=== PATIENT | male | born 1955 | race Hispanic/Latino ===

== ENCOUNTER 2016-03-17 19:03 | Emergency (ER) | payer BC ==
[2016-03-17] MEDS ORDERED: KETOROLAC TROMETHAMINE INJ 30 MG/ML VIAL IM ONE (19:36)
[2016-03-17] MEDS ORDERED: predniSONE 20 MG TAB PO ONE (19:36)
[2016-03-17] MEDS ORDERED: COLCHICINE 0.6 MG TAB PO ONE ×2 (19:37→20:47)
--- NOTE | 2016-03-17 19:58 | RAD ---
EXAM DESCRIPTION: XR ANKLE 3 OR MORE VIEWS CLINICAL HISTORY: Lateral ankle and heel pain 1 day, no trauma, mild COMPARISON: None. FINDINGS: AP,lateral and oblique views of the right ankle were submitted. There is soft tissue swelling. There is no discrete acute fracture or dislocation. The ankle mortise is intact in these non stress views. There is no radiopaque foreign body material. IMPRESSION: No acute fracture or dislocation. Soft tissue swelling. Electronically signed by: Guille Guthrie 03/17/2016 19:55
[2016-03-17] MEDS ORDERED: COLCHICINE 0.6 MG TAB ONE (20:48)
--- NOTE | 2016-03-17 20:50 | ED.PDOC ---
History of Present Illness - General Chief Complaint: Lower Extremity Injury Stated Complaint: right ankle pain Time Seen by Provider: 03/17/16 19:35 Source: patient Exam Limitations: no limitations - History of Present Illness Initial Comments: the patient is a 60-year-old male presenting to the ER secondary to right posterior lateral foot and ankle pain present for the last 24 hours and getting worse. Pain is with passive and active range of motion. He has not sustained any trauma to it that he knows of. Pain is also worse with palpation. There is mild diffuse erythema. There is mild diffuse swelling. It is exquisitely tender to palpation. He has not previously had any history of gout but he does drink significant amount of alcohol. No new medication changes. He does state he has not been drinking enough fluids otherwise. No fevers. No breaks in the skin. No extending erythema. No evidence of abscess formation. He is neurovascularly preserved distally. Occurred: yesterday Pain - Lower Extremity: severe: Left Foot, Right Foot Method of Injury: unknown Improving Factors: immobilization Worsening Factors: movement Allergies/Adverse Reactions: Allergies NO KNOWN ALLERGY Allergy (Unverified 09/19/13 19:53) Home Medications: Ambulatory Orders Chlorhexidine Mouth Rinse [Peridex] 15 ml MT BID #1 bttl 05/02/14 Naproxen [Naprosyn] 500 mg PO BID PRN #10 tab 05/02/14 Penicillin V Potassium 500 mg PO QID #40 tab 05/02/14 Colchicine 0.6 mg PO Q6H PRN #4 tab 03/17/16 Review of Systems - Review of Systems Constitutional: States: no symptoms reported EENTM: States: no symptoms reported Respiratory: States: no symptoms reported Cardiology: States: no symptoms reported Gastrointestinal/Abdominal: States: no symptoms reported Genitourinary: States: no symptoms reported Musculoskeletal: States: see HPI Skin: States: see HPI Neurological: States: no symptoms reported All other Systems: No Change from Baseline Past Medical History (General) - Patient Medical History Hx Seizures: No Hx Stroke: No Hx Dementia: No Hx Asthma: No Hx of COPD: No Hx Cardiac Disorders: No Hx Congestive Heart Failure: No Hx Pacemaker: No Hx Hypertension: No Hx Thyroid Disease: No Hx Diabetes: No Hx Gastroesophageal Reflux: No Hx Renal Disease: No Hx Cancer: No Hx of HIV: No Hx Hepatitis C: No Hx MRSA: No - Vaccination History Hx Tetanus, Diphtheria Vaccination: No Hx Influenza Vaccination: No Hx Pneumococcal Vaccination: No Immunizations Up to Date: Yes - Social History Hx Tobacco Use: Yes Hx Alcohol Use: Yes Hx Substance Use: No Hx Substance Use Treatment: No Hx Depression: No Hx Physical Abuse: No Hx Emotional Abuse: No Hx Suspected Abuse: No Family Medical History - Family History Mother Family History: No Known Physical Exam - Physical Exam General Appearance: Alert, Comfortable, No apparent distress Eyes, Ears, Nose, Throat: PERRL/EOMI Neck: full range of motion, supple, normal inspection Cardiovascular/Respiratory: normal peripheral pulses, normal breath sounds, no respiratory distress Gastrointestinal/Abdominal: non-tender Thigh/Hip: normal inspection, non-tender, no evidence of injury, normal ROM Leg: normal inspection, non-tender, no evidence of injury, normal ROM Knee: normal inspection, non-tender, no evidence of injury, normal ROM Ankle: other - see history of present illness Foot: other - see history of present illness. There is no bruising or deformity. Neuro/Tendon: normal sensation, normal motor functions, normal tendon functions , responds to pain Mental Status: alert, oriented x 3 Skin: normal color - with the exception of mild erythema as described above Comments: Vital Signs - 24 hr 03/17/16 19:20 Temperature 100.8 F H Pulse Rate [ 89 right arm] Respiratory 20 Rate Blood Pressure 145/92 [Right Arm] O2 Sat by Pulse 99 Oximetry Progress - Progress Progress: 03/17/16 20:54 the patient is a 60-year-old male presenting with pain to the right lateral posterior foot. It is been present for only approximately 1 day. There has been no traumatic inciting event. X-rays of the ankle are reassuring. Due to clinical presentation most likely etiology is gout. He has responded very nicely to colchicine, Toradol and prednisone. He will be given tablets of colchicine to take over the next few days. Additionally he increase his fluid intake and decrease his alcohol intake. He needs to keep the area warm crystal formation. If the problem appears to be worsening rather than improving and he may need additional workup. Certainly early infectious cellulitis can look similar, however clinical presentation at this time is more consistent with gout. he does need follow-up with his primary care doctor early next week. ER warnings were given for any significant worsening. If he worsens rather than improves, then blood work including culture, uric acid, ESR, CBC and CMP are recommended along with possible CT imaging of the area. Departure - Departure Clinical Impression: Gout attack Qualifiers: Gout site: ankle Gout etiology: unspecified cause Laterality: right Qualifier Code: (M10.9) Gout, unspecified Disposition: Discharge to Home or Self Care Condition: Fair Departure Forms: ED Discharge - Pt. Copy, Patient Portal Self Enrollment Instructions: DI for Gout Diet: regular diet Activity: increase activity as tolerated Referrals: Stefano Webb III, MD [Primary Care Provider] - 1-5 Days Prescriptions: Colchicine 0.6 mg PO Q6H PRN #4 tab PRN Reason: Pain -- Moderate Home Medications: Ambulatory Orders Chlorhexidine Mouth Rinse [Peridex] 15 ml MT BID #1 bttl 05/02/14 Naproxen [Naprosyn] 500 mg PO BID PRN #10 tab 05/02/14 Penicillin V Potassium 500 mg PO QID #40 tab 05/02/14 Colchicine 0.6 mg PO Q6H PRN #4 tab 03/17/16 Additional Instructions: the patient is a 60-year-old male presenting with pain to the right lateral posterior foot. It is been present for only approximately 1 day. There has been no traumatic inciting event. X-rays of the ankle are reassuring. Due to clinical presentation most likely etiology is gout. He has responded very nicely to colchicine, Toradol and prednisone. He will be given tablets of colchicine to take over the next few days. Additionally he increase his fluid intake and decrease his alcohol intake. He needs to keep the area warm crystal formation. If the problem appears to be worsening rather than improving and he may need additional workup. Certainly early infectious cellulitis can look similar, however clinical presentation at this time is more consistent with gout. he does need follow-up with his primary care doctor early next week. ER warnings were given for any significant worsening. If he worsens rather than improves, then blood work including blood culture, uric acid, ESR, CBC and CMP are recommended along with possible CT imaging of the area.
[2016-03-17 21:17] VITALS: BP 137/88; TEMP 99.9
[2016-03-17 21:18] VITALS: O2SAT 100
== END 2016-03-17 21:19 | disposition home or self-care (01) ==
LOC: ER 19:03
DX: M10.9 Gout, unspecified (principal); Z87.891 Personal history of nicotine dependence

== ENCOUNTER → 2016-06-07 | Outpatient (CLI) | payer BC | END | disposition home or self-care (01) | LOC: GMAL 10:33 | PROVIDERS: ATTEND Family Medicine | DX: D51.3 Other dietary vitamin B12 deficiency anemia (principal); Z12.5 Encounter for screening for malignant neoplasm of prostate; M25.50 Pain in unspecified joint; E55.9 Vitamin D deficiency, unspecified ==

== ENCOUNTER → 2016-10-03 | Outpatient (CLI) | payer BC | END | disposition home or self-care (01) | LOC: GMAL 10:26 | PROVIDERS: ATTEND Family Medicine | DX: E55.9 Vitamin D deficiency, unspecified (principal) ==

== ENCOUNTER → 2017-04-05 | Outpatient (CLI) | payer BC | LOC: GMAL 10:49 | PROVIDERS: ATTEND Family Medicine | DX: Z00.00 Encounter for general adult medical examination without abnormal findings (principal) ==

== ENCOUNTER → 2018-08-19 | Outpatient (CLI) | payer SELFPAY | LOC: GMAL 10:45 | PROVIDERS: ATTEND Family Medicine | DX: Z00.01 Encounter for general adult medical examination with abnormal findings (principal) ==

== ENCOUNTER 2019-05-25 | Emergency (ER) | payer BC | END 2019-05-25 21:42 | disposition home or self-care (01) | DX: H91.93 Unspecified hearing loss, bilateral (principal); H66.90 Otitis media, unspecified, unspecified ear; H60.90 Unspecified otitis externa, unspecified ear; H61.23 Impacted cerumen, bilateral; I10 Essential (primary) hypertension; Z87.891 Personal history of nicotine dependence ==

== ENCOUNTER 2019-10-07 22:41 | Emergency (ER) | payer BC ==
--- NOTE | 2019-10-07 23:06 | ED.PDOC ---
History of Present Illness - General Chief Complaint: Abdominal Pain Stated Complaint: low abd pain, nausea Time Seen by Provider: 10/07/19 22:58 Information Source: patient, family - History of Present Illness Initial Comments: 64 yo M comes in with the c/c of left inguinal pain x 1 day. States he has had hernia on and off for the past two years, but over the past day has developed a hard mass. Now hurting so bad that he has been vomiting. No black or bloody bm. NO fever. Patient also has HTN but does not take his medication. NO prior abdominal surgeries. no chest pain or shortness of breath. Review of Systems - Review of Systems Constitutional: Denies: chills, diaphoresis, fever, malaise EENTM: Denies: eye pain, double vision Respiratory: Denies: cough, orthopnea, short of breath Cardiology: Denies: chest pain, edema, palpitations Gastrointestinal/Abdominal: States: abdominal pain, nausea, vomiting. Denies: constipation, diarrhea Genitourinary: Denies: dysuria, frequency, hematuria Musculoskeletal: Denies: back pain, joint swelling, muscle pain Skin: Denies: change in color, change in hair/nails, dryness Neurological: Denies: headache, numbness, paresthesia Hematologic/Lymphatic: Denies: anemia, blood clots, easy bleeding, easy bruising All other Systems: Reviewed and Negative Past Medical History (General) - Patient Medical History Hx Seizures: No Hx Stroke: No Hx Dementia: No Hx Asthma: No Hx of COPD: No Hx Cardiac Disorders: No Hx Congestive Heart Failure: No Hx Pacemaker: No Hx Hypertension: Yes Hx Thyroid Disease: No Hx Diabetes: No Hx Gastroesophageal Reflux: No Hx Renal Disease: No Hx Cancer: No Hx of HIV: No Hx Hepatitis C: No Hx MRSA: No Surgical History: other - Vaccination History Hx Tetanus, Diphtheria Vaccination: No Hx Influenza Vaccination: No Hx Pneumococcal Vaccination: No - Social History Hx Tobacco Use: Yes Hx Alcohol Use: Yes Hx Substance Use: No Hx Substance Use Treatment: No Hx Depression: No Hx Physical Abuse: No Hx Emotional Abuse: No Hx Suspected Abuse: No Family Medical History - Family History Mother Family History: No Known Physical Exam - Physical Exam General Appearance: Alert, Comfortable, No apparent distress Eyes, Ears, Nose, Throat Exam: PERRL/EOMI, normal ENT inspection Neck: non-tender, full range of motion, supple, normal inspection Respiratory: chest non-tender, lungs clear, normal breath sounds, no respiratory distress, no accessory muscle use Cardiovascular/Chest: normal peripheral pulses, regular rate, rhythm, no edema, no gallop, no JVD, no murmur Peripheral Pulses: 2+ Gastrointestinal/Abdominal: normal bowel sounds, soft, no pulsatile mass, other - left inguinal hernria, not reducible. 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 Attempted reduction without success. attempted partial inguinal block. CT abd/pelvis, CBC, CMP, Lipase. 1 L NS bolus. 4 mg morphine, 4 mg zofran. 10/08/19 00:11 Surgery at bedside. Successful reduction. Instruction to follow up in surgery office in AM to schedule hernia repair surgery. The data reviewed when caring for this patient included: nurse notes etc, prior records. The history and assessments from nurses notes were reviewed and considered, and the patient's home medication list was also reviewed and considered. My assessment and the results of testing completed here in the ED were discussed with the patient/family. All questions were answered, and they express understanding of my assessment and the plan. They have been instructed to return if their symptoms worsen, and have been asked to follow up with a primary care physician to recheck today's presenting complaint and to monitor blood pressure. Encouraged compliance with blood pressure medication. Billing code 801 - Results/Orders Results/Orders: CT abdomen and pelvis: Findings suggestive of developing/early small bowel obstr uction within the left abdomen secondary to a small bowel containing left inguinal hernia. The bowel within the hernia sac is mildly inflamed. 10/07/19 23:02 Hold Metformin x 48Hrs [id number] Sodium Chloride 0.9% 1000ML [Ns 1000 ml] 1,000 ml IVS STAT 10/07/19 23:05 URINALYSIS Stat 10/07/19 23:36 URINALYSIS Stat Laboratory Results WBC 7.8 K/mm3 (4.8-10.8) 10/07/19 23:07 RBC 4.39 M/mm3 (4.70-6.10) L 10/07/19 23:07 Hgb 14.3 gm/dL (14.0-18.0) 10/07/19 23:07 Hct 40.2 % (42.0-52.0) L 10/07/19 23:07 MCV 91.4 fl (80.0-94.0) 10/07/19 23:07 MCH 32.5 pg (27.0-31.0) H 10/07/19 23:07 MCHC 35.6 g/dL (33.0-37.0) 10/07/19 23:07 RDW 13.8 % (11.5-14.5) 10/07/19 23:07 Plt Count 154 K/mm3 (130-400) 10/07/19 23:07 MPV 9.2 fl (7.40-10.4) 10/07/19 23:07 Absolute Neuts (auto) 5.40 K/uL (1.8-6.8) 10/07/19 23:07 Absolute Lymphs (auto) 1.60 K/uL (1.0-3.4) 10/07/19 23:07 Absolute Monos (auto) 0.50 K/uL (0.2-0.8) 10/07/19 23:07 Absolute Eos (auto) 0.10 K/uL (0.0-0.4) 10/07/19 23:07 Absolute Basos (auto) 0.10 K/uL (0.0-0.1) 10/07/19 23:07 Neutrophils % 69.5 % (42.0-78.0) 10/07/19 23:07 Lymphocytes % 21.2 % (20.0-50.0) 10/07/19 23:07 Monocytes % 7.0 % (2.0-9.0) 10/07/19 23:07 Eosinophils % 1.4 % (1.0-5.0) 10/07/19 23:07 Basophils % 0.9 % (0.0-2.0) 10/07/19 23:07 PT 10.0 SECONDS (9.0-10.9) 10/07/19 23:07 INR 1.01 (0.9-1.15) 10/07/19 23:07 PTT (SP) 24.7 SECONDS (21.8-31.6) 10/07/19 23:07 Sodium 135 mmol/L (135-145) 10/07/19 23:07 Potassium 3.7 mmol/L (3.6-5.0) 10/07/19 23:07 Chloride 99 mmol/L (101-111) L 10/07/19 23:07 Carbon Dioxide 26 mmol/L (21-31) 10/07/19 23:07 Anion Gap 13.7 (12-18) 10/07/19 23:07 BUN 15 mg/dL (7-18) 10/07/19 23:07 Creatinine 0.91 mg/dL (0.6-1.3) 10/07/19 23:07 BUN/Creatinine Ratio 16.5 (10-20) 10/07/19 23:07 Random Glucose 114 mg/dL (70-105) H 10/07/19 23:07 Serum Osmolality 271.8 mOsm/L (275-295) L 10/07/19 23:07 Calcium 9.3 mg/dL (8.4-10.2) 10/07/19 23:07 Total Bilirubin 0.5 mg/dL (0.2-1.0) 10/07/19 23:07 AST 23 IU/L (10-42) 10/07/19 23:07 ALT 22 IU/L (10-60) 10/07/19 23:07 Alkaline Phosphatase 71 IU/L (42-121) 10/07/19 23:07 Serum Total Protein 7.8 gm/dL (6.4-8.2) 10/07/19 23:07 Albumin 4.3 g/dl (3.2-5.5) 10/07/19 23:07 Globulin 3.5 gm/dL (2.3-3.5) 10/07/19 23:07 Albumin/Globulin Ratio 1.2 (1.1-1.9) 10/07/19 23:07 Lipase 23 U/L (22-51) 10/07/19 23:07 - Consult/PCP Consult Reason/Comments: Dr. Garcia general surgery. - Additional EKG/XRAY/Consults Time Called: 23:55 - Surgery Consult/PCP: Dr. Garcia Departure - Departure Clinical Impression: Inguinal hernia of left side without obstruction or gangrene Abdominal pain Qualifiers: Abdominal location: left lower quadrant Qualified Code(s): R10.32 - Left lower quadrant pain Disposition: Discharge to Home or Self Care Condition: Fair Departure Forms: ED Discharge - Pt. Copy, Patient Portal Self Enrollment Instructions: DI for Abdominal Pain-Adult, Inguinal and Femoral (Groin) Hernias Referrals: Stefano Webb III, MD [Primary Care Provider] - 1-5 Days Osvaldo Garcia MD [Active Staff] - 1-2 Days
[2019-10-07] MEDS: MORPHINE SULFATE INJ 10 MG/ML VIAL IV ONE (23:17)
[2019-10-07] MEDS: ONDANSETRON INJ 4 MG/2 ML VIAL IV ONE (23:19)
[2019-10-07] MEDS: SODIUM CHLORIDE 0.9% 1000ML 1,000 ML IVS PRN (23:27)
[2019-10-07] MEDS ORDERED: LIDOCAINE 1% 10 ML VIAL INJ ONE (23:51)
--- NOTE | 2019-10-07 23:58 | CT ---
EXAM: CT Abdomen and Pelvis With Intravenous Contrast CLINICAL HISTORY: The patient is 64 years old and is Male; hernia TECHNIQUE: Axial computed tomography images of the abdomen and pelvis with intravenous contrast. Sagittal and coronal reformatted images were created and reviewed. This CT exam was performed using one or more of the following dose reduction techniques: automated exposure control, adjustment of the mA and/or kV according to patient size, and/or use of iterative reconstruction technique. COMPARISON: No relevant prior studies available. FINDINGS: LUNG BASES: Unremarkable. No mass. No consolidation. ABDOMEN: LIVER: A 1.4 cm cyst within the left hepatic lobe is present. Smaller cyst within the left lobe of the liver also noted. The liver is mildly fatty. GALLBLADDER AND BILE DUCTS: No calcified stones. No ductal dilation. PANCREAS: No ductal dilation. No mass. SPLEEN: Unremarkable. ADRENALS: Unremarkable. No mass. KIDNEYS AND URETERS: Exophytic left renal cysts measuring 4.9 cm is present. No follow-up imaging is recommended. The kidneys enhance symmetrically. No obstructing renal or ureteral calculus is seen. STOMACH AND BOWEL: Stomach is distended with food contents. Several small bowel loops in left abdomen are dilated demonstrating air-fluid levels. A left inguinal hernia containing a loop of mildly inflamed small bowel is present. The small bowel beyond the hernia sacs is decompressed. Stool is present throughout colon. PELVIS: APPENDIX: No findings to suggest acute appendicitis. BLADDER: Unremarkable. No mass. REPRODUCTIVE: Unremarkable as visualized. ABDOMEN and PELVIS: INTRAPERITONEAL SPACE: Unremarkable. No free air. No significant fluid collection. BONES/JOINTS: Unilateral pars defect on the right at L5 is present. No evidence of anterolisthesis. Multilevel degenerative change of the spine is present. SOFT TISSUES: See above. VASCULATURE: Unremarkable. No abdominal aortic aneurysm. LYMPH NODES: Unremarkable. No enlarged lymph nodes. IMPRESSION: Findings suggestive of developing/early small bowel obstruction within the left abdomen secondary to a small bowel containing left inguinal hernia. The bowel within the hernia sac is mildly inflamed. Electronically signed by: Chaan Rapp MD 10/07/2019 11:56 PM CDT
[2019-10-08] MEDS: HYDROmorphone HCL INJ 2 MG/ML VIAL IV ONE (00:25)
[2019-10-08 04:12] VITALS: BP 126/89; TEMP 97.8; O2SAT 95
== END 2019-10-08 01:14 | disposition home or self-care (01) ==
LOC: ER 22:41
DX: K40.90 Unilateral inguinal hernia, without obstruction or gangrene, not specified as recurrent (principal); R10.32 Left lower quadrant pain; R11.2 Nausea with vomiting, unspecified; I10 Essential (primary) hypertension; Z87.891 Personal history of nicotine dependence
CPT/HCPCS: 74177; 80053; 81001; 83690; 85025; 85610; 85730; J1170; J2270; J2405; J7030

== ENCOUNTER 2019-10-16 06:41 | Day surgery (SDC) | payer BC ==
[~2019-10-16 06:41] MED LIST: LACTATED RINGERS 1,000 ML ONE
[2019-10-16] MEDS ORDERED: PROPOFOL 200 MG/20 ML VIAL IV ONE (07:00)
[2019-10-16] MEDS ORDERED: SODIUM CHLORIDE 0.9% 50 ML VIAL ONE (07:00)
[2019-10-16] MEDS ORDERED: ceFAZolin SODIUM 1 GM VIAL ONE (07:00)
[2019-10-16] MEDS ORDERED: MAGNESIUM SULFATE INJ 1 GM/2 ML VIAL ONE (07:00)
[2019-10-16] MEDS ORDERED: DEXAMETHASONE INJ 10 MG/ML VIAL ONE (07:00)
[2019-10-16] MEDS ORDERED: LIDOCAINE 1% 10 ML VIAL INJ ONE (07:00)
[2019-10-16] MEDS ORDERED: BUPIVACAINE 0.5% 30 ML VIAL INJ ONE ×2 (08:25→08:28)
[2019-10-16] MEDS ORDERED: BUPIVACAINE LIPOSOME 13.3 MG/ML VIAL INJ ONE ×2 (08:25→08:28)
[2019-10-16] MEDS ORDERED: MIDAZOLAM INJ 2 MG/2 ML VIAL ONE (09:05)
[2019-10-16] MEDS ORDERED: fentaNYL CITRATE INJ 50 MCG/ML AMP ONE (09:06)
[2019-10-16] MEDS ORDERED: FAMOTIDINE 10 MG/ML ML IV ONE (09:06)
--- NOTE | 2019-10-16 10:43 | OP ---
DATE OF PROCEDURE: 10/16/19 PREOPERATIVE DIAGNOSIS: 1. Left inguinal hernia. POSTOPERATIVE DIAGNOSIS: 1. Left inguinal hernia. PROCEDURE: 1. Repair of left inguinal hernia. 2. Ilioinguinal nerve block with Exparel additive for postoperative pain control. SURGEON: Osvaldo Garcia MD. ANESTHESIA: General and local. FINDINGS: He had a moderate direct hernia. No indirect component. Ilioinguinal nerve identified and preserved. COMPLICATIONS: None. PLAN: Discharge. INDICATION: As stated. PROCEDURE: General anesthesia was induced. He was prepped and draped in sterile fashion. 0.5% Marcaine with Exparel was used. An ilioinguinal nerve block was performed based on the ASIS anatomic landmarks. We then injected the incision site. Incision was made. Subcutaneous vessels were taken down. The external oblique aponeurosis was identified. A jose was made with the knife. It was undermined and cut opening the fibers with Metzenbaum. The nerve was identified and dissected out and kept out of harm's way. As we dissected off the cord, we identified a direct hernia. This was reduced in the Emergency Room. We got into the preperitoneal plane identifying the epigastric vessels. We kept them anterior with the Army-Bartlett retractor and then used finger sweep and moist Ray-Tecs to create the preperitoneal plane. The large PHS mesh was used. It was trimmed to appropriate size inferiorly and medially. It was put in the preperitoneal plane lying out nice and flat. A cut was made, wrapped around the cord, non-stricturing and secured to the shelving edge. It was then secured to the tubercle. At this point, we used more local anesthesia in the area. The nerve at this point was now under the mesh. The external oblique was then closed with a running 2-0 Vicryl and put in some more local anesthesia. There was no evidence of bleeding. The wound was closed in two additional layers of absorbable suture. Dressing was applied. The patient was awakened and taken to Recovery to be discharged. #[id number] cc: Stefano Webb MD [facility]
[2019-10-16 11:22] VITALS: BP 153/98; TEMP 97.6; O2SAT 99
== END 2019-10-16 11:10 | disposition home or self-care (01) ==
LOC: AMB 06:41
PROVIDERS: ATTEND Surgery
DX: K50.90 Crohn's disease, unspecified, without complications (principal); I10 Essential (primary) hypertension; F17.210 Nicotine dependence, cigarettes, uncomplicated; Z79.899 Other long term (current) drug therapy
CPT/HCPCS: 00840; 49505; A4216; J0690; J1100; J2250; J3010; J3475; J3490; J7120